=== PATIENT | female | born 1930 | race Caucasian/White ===

== ENCOUNTER 2018-05-14 19:38 | Emergency (ER) | payer OTHER ==
--- NOTE | 2018-05-14 19:40 | PDOC ---
Rapid Medical Evaluation Time Seen by Provider: 05/14/18 19:40 Medical Evaluation: 05/14/18 19:40 I have performed a brief in-person evaluation of this patient. The patient presents with a chief complaint of: Syncope this am. Family members states @ 2am today, pt's eyes rolled in the back of her head and appeared pale and urinated/defecated on self. Might have stopped breathing for seconds per family. C/o dizziness and nausea now. Baseline since. No fall/head injury. No h/ o seizures. H/o anxiety, ?alzheimers, on namenda, takes eggrenox, GERD Resides in [place], PMD in Pertinent physical exam findings:stable and well edie, non-focal I have ordered the following:ekg/cxr/labs The patient will proceed to the ED for further evaluation. Discharge Disposition - Diagnosis Syncope Qualifiers: Syncope type: unspecified Qualified Code(s): R55 - Syncope and collapse - Referrals - Patient Instructions - Post Discharge Activity
[2018-05-14 19:47] VITALS: BMI 30.2
[2018-05-14 20:48] LABS: BASO % 0.7 % (0-2.0); EOS % 1.4 % (0-4.5); HEMATOCRIT 37.8 % (32.4-45.2); HEMOGLOBIN 13.1 GM/dL (10.7-15.3); LYMPH % 32.1 % (8-40); MCHC 34.6 g/dl (32.0-36.0); MEAN CELL VOLUME 89.6 fl (80-96); MEAN PLT VOLUME 8.8 fl (7.5-11.1); MONO % 9.8 % (3.8-10.2); PLATELET COUNT 229 K/MM3 (134-434); RBC 4.22 M/mm3 (3.60-5.2); WHITE BLOOD COUNT 6.9 K/mm3 (4.0-10.0)
[2018-05-14 21:00] LABS: URINE APPEARANCE CLEAR; URINE BILIRUBIN NEGATIVE (<2.0 mg/dL); URINE COLOR YELLOW; URINE GLUCOSE (UA) NEGATIVE (NEGATIVE); URINE KETONE NEGATIVE (NEGATIVE); URINE LEUK ESTERASE 3+ (NEGATIVE); URINE NITRITE NEGATIVE (NEGATIVE); URINE PROTEIN NEGATIVE (NEGATIVE); URINE UROBILINOGEN NEGATIVE mg/dL (0.2-1.0)
[2018-05-14 21:11] LABS: EPI CELLS RARE /HPF (FEW); URINE BACTERIA RARE /hpf (NONE SEEN); URINE MUCUS FEW
[2018-05-14 21:17] LABS: ALBUMIN 3.4 g/dl (3.4-5.0); ALK PHOS 91 U/L (45-117); ANION GAP 9 MMOL/L (8-16); BILIRUBIN,TOTAL 0.3 mg/dL (0.2-1); BLOOD UREA NITROGEN 18 mg/dL (7-18); CALCIUM 8.5 mg/dL (8.5-10.1); CHLORIDE 106 mmol/L (98-107); CO2 27 mmol/L (21-32); CREATININE 1.2 mg/dL (0.55-1.3); GLUCOSE,RANDOM 134 mg/dL (74-106); POTASSIUM 4.1 mmol/L (3.5-5.1); SGOT/AST 22 U/L (15-37); SGPT/ALT 20 U/L (13-61); SODIUM 142 mmol/L (136-145); TOT PROT 6.6 g/dl (6.4-8.2)
[2018-05-14] MEDS ORDERED: SODIUM CHLORIDE 1,000 ML IV STA (21:22)
[2018-05-14] MEDS ORDERED: CEFTRIAXONE 1,000 MG in DEXTROSE 5%-WATER - 50 ML IVPB ONE (21:39)
[2018-05-14] MEDS ORDERED: CEFTRIAXONE 1 GM/50 ML BAG ONE (21:47)
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
[2018-05-15 00:59] VITALS: BP 136/78; PULSE 78; TEMP 98.5
--- NOTE | 2018-05-15 17:15 | EKG ---
Test Reason : Blood Pressure : / mmHG Vent. Rate : 078 BPM Atrial Rate : 078 BPM P-R Int : 154 ms QRS Dur : 088 ms QT Int : 422 ms P-R-T Axes : 036 -30 -16 degrees QTc Int : 481 ms NORMAL SINUS RHYTHM LEFT AXIS DEVIATION MINIMAL VOLTAGE CRITERIA FOR LVH, MAY BE NORMAL VARIANT NONSPECIFIC ST ABNORMALITY ABNORMAL ECG NO PREVIOUS ECGS AVAILABLE Confirmed by MD ANSHU, HERMINIA ([id number]) on 05/15/2018 5:14:29 PM Referred By: Confirmed By:HERMINIA BRASHER MD
== END 2018-05-15 01:00 | disposition home or self-care (01) ==
LOC: JER 19:38
PROC: 3E0337Z Introduction of Electrolytic and Water Balance Substance into Peripheral Vein, Percutaneous Approach (ICD-10-PCS; principal; 2018-05-14)
PROC: 3E03329 Introduction of Other Anti-infective into Peripheral Vein, Percutaneous Approach (ICD-10-PCS; 2018-05-14)
DX: N39.0 Urinary tract infection, site not specified (principal); F41.0 Panic disorder [episodic paroxysmal anxiety]; F41.9 Anxiety disorder, unspecified; F03.90 Unspecified dementia, unspecified severity, without behavioral disturbance, psychotic disturbance, mood disturbance, and anxiety; K21.9 Gastro-esophageal reflux disease without esophagitis
CPT/HCPCS: 36415; 71045-TC-FY; 80053; 81003; 81015; 82550; 83605; 84484; 85025; 87086; 93005; 93010; 96361; 96374; 99283-25; J7030

== ENCOUNTER 2019-06-15 19:05 | Emergency (ER) | payer OTHER ==
[2019-06-15 19:13] VITALS: TEMP 97.3; BMI 21.4
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
[2019-06-15] MEDS ORDERED: ACETAMINOPHEN 325 MG TABLET (FP) PO ONE (20:19)
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
[2019-06-15] MEDS ORDERED: ACETAMINOPHEN 325 MG TABLET (FP) ONE (21:08)
[2019-06-15] MEDS ORDERED: LIDOCAINE HCL 1%, 10 MG/ML (20ML VIAL) ONE (21:31)
[2019-06-15] MEDS ORDERED: LIDOCAINE HCL 1%, 10 MG/ML (50 mL VIAL) SQ ONE (21:32)
[2019-06-16 00:38] VITALS: BP 150/61; PULSE 69
== END 2019-06-16 00:40 ==
LOC: JER 19:05
PROC: 0RSNXZZ Reposition Right Wrist Joint, External Approach (ICD-10-PCS; principal; 2019-06-15)
DX: M21.931 Unspecified acquired deformity of right forearm (principal); R41.9 Unspecified symptoms and signs involving cognitive functions and awareness; K21.9 Gastro-esophageal reflux disease without esophagitis; F41.9 Anxiety disorder, unspecified; F03.90 Unspecified dementia, unspecified severity, without behavioral disturbance, psychotic disturbance, mood disturbance, and anxiety
CPT/HCPCS: 70450-TC; 71045-TC-FY; 72125-TC; 72170-TC-FY; 73110-TC-RT-FY; 73130-TC-RT-FY; 73562-TC-LT-FY; 73562-TC-RT-FY; 99282-25